=== PATIENT | female | born 1990 | race Two or more races ===

== ENCOUNTER 2019-11-23 12:47 | Outpatient (CLI) | payer OTHER, SELFPAY ==
--- NOTE | ~2019-11-23 | US_ITS ---
EXAMINATION: US breast BI limited HISTORY: Pain of the upper inner quadrant of the right and left breast TECHNIQUE: Limited bilateral breast ultrasound was performed. FINDINGS: There is no evidence of focal abnormal cystic or solid mass in the vicinity of the patient' s bilateral breast pain. IMPRESSION: No specific sonographic correlate is identified for the bilateral breast pain. Further evaluation at this time should be based on clinical assessment. Continued follow-up physical examination is recomme nded. BI-RADS Category 1: Negative Reviewed, dictated and finalized at location A. IMPRESSION: No specific sonographic correlate is identified for the bilateral breast pain. Further evaluation at this time should be based on clinical assessment. Continu ed follow-up physical examination is recommended. BI-RADS Category 1: Negative
== END 2019-11-23 12:48 | disposition home or self-care (01) ==
PROVIDERS: PCP Nurse Practitioner Adult Health; Visit Provider Nurse Practitioner Adult Health
DX: N64.4 Mastodynia (principal)
CPT/HCPCS: 76642

== ENCOUNTER 2022-04-04 20:39 | Emergency (ER) | payer OTHER, MEDICAID, SELFPAY ==
[2022-04-04 21:39] VITALS: BP 119/89; PULSE 102; RESP 20; TEMP 37.1; O2SAT 100
--- NOTE | 2022-04-04 22:57 | ED.GENADULT ---
HPI - General Adult General Chief complaint: Unspecified Stated complaint: anxiety Time Seen by Provider: 04/04/22 22:47 History of Present Illness HPI narrative: 31-year-old female presents to the emergency room for evaluation of anxiety attack. Patient states that she recently had a tooth pulled soon taking Tylenol and ibuprofen for it but states that she is having hot and cold flashes since having the procedure. Patient does not have a thermometer so was unable to take her temperature but has been using the back of her hand. Patient is stable when taking her hydroxyzine. States that she did not take it today because she did not feel that her anxiety was severe enough Review of Systems Review of Systems: CONSTITUTIONAL: Denies fever, chills, or sweats. EYES: Denies visual changes, redness, or discharge. ENT: Denies rhinorrhea, congestion, sore throat, or otalgia. CARDIOVASCULAR: Denies chest pain, palpitations, or edema. RESPIRATORY: Denies cough or dyspnea. GASTROINTESTINAL: Denies abdominal pain, nausea, vomiting, or diarrhea. GENITOURINARY: Denies dysuria or hematuria. SKIN: Denies rash or itching. MUSCULOSKELETAL: Denies back pain, joint pain, or myalgia. NEUROLOGIC: Denies headache, numbness, dizziness, or weakness. PSYCHIATRIC: Reports anxiety. Exam Narrative: GENERAL: Well-appearing, well-nourished, no physical limitations, and in no acute distress. HEAD: Normocephalic, atraumatic. EYES: Conjunctivae normal, PERRLA and EOMI. ENT: External nose normal, Nares clear, no rhinorrhea or epistaxis. Mucous membranes moist. Oropharynx without tonsillar hypertrophy exudate or other lesions. External ears normal, bilateral TMs normal bilaterally NECK: Supple. No adenopathy or masses. CHEST: Clear to auscultation. No respiratory distress. No wheezes rales or rhonchi. No tenderness. HEART: Regular rate and rhythm. No murmur heard. Normal peripheral pulses. EXTREMITIES: Normal range of motion. No edema. No clubbing or cyanosis SKIN: Warm, dry, no rash. No noted wounds NEURO: No focal deficits. Alert and oriented x3. MAEW. CN's II-XI intact bilaterally, normal gait PSYCH: Cooperative. Anxious and tearful. Course Vital Signs Vital signs: Vital Signs Temperature 37.1 C 04/04/22 21:39 Pulse Rate 102 H 04/04/22 21:39 Respiratory Rate 20 04/04/22 21:39 Blood Pressure 119/89 04/04/22 21:39 Pulse Oximetry 100 04/04/22 21:39 Oxygen Delivery Room Air 04/04/22 21:39 Temperature 37.1 C 04/04/22 21:39 Pulse Rate 102 H 04/04/22 21:39 Respiratory Rate 20 04/04/22 21:39 Blood Pressure 119/89 04/04/22 21:39 Pulse Oximetry 100 04/04/22 21:39 Oxygen Delivery Room Air 04/04/22 21:39 Medical Decision Making Vital Signs Vital Signs: Vital Signs Temperature 37.1 C 04/04/22 21:39 Pulse Rate 102 H 04/04/22 21:39 Respiratory Rate 04/04/22 21:39 Blood Pressure 119/89 04/04/22 21:39 Pulse Oximetry 100 04/04/22 21:39 Oxygen Delivery Room Air 04/04/22 21:39 Temperature 37.1 C 04/04/22 21:39 Pulse Rate 102 H 04/04/22 21:39 Respiratory Rate 04/04/22 21:39 Blood Pressure 119/89 04/04/22 21:39 Pulse Oximetry 100 04/04/22 21:39 Oxygen Delivery Room Air 04/04/22 21:39 Discharge Plan Discharge Clinical Impression: Anxiety attack Patient Disposition: Home, Self-Care Condition: Stable Instructions: Antibiotic Form, Anxiety (ED) Additional Instructions: Resume taking her hydroxyzine for her anxiety. Follow-up/Referrals: Mk,RUSSELL Tijerina [Primary Care Provider] - Time of Disposition: 22:59
--- NOTE | 2022-04-04 23:00 | PC.NURSE ---
Transferred care to CARLOS Gordillo
[2022-04-04 23:10] VITALS: BP 130/86; PULSE 103; RESP 20; O2SAT 97
== END 2022-04-04 23:10 | disposition home or self-care (01) ==
PROVIDERS: Emergency Provider Nurse Practitioner Family; PCP Nurse Practitioner Adult Health
DX: F41.9 Anxiety disorder, unspecified (principal)
CPT/HCPCS: 99281

== ENCOUNTER → 2023-02-08 13:36 | Outpatient (CLI) | payer OTHER, MEDICAID, SELFPAY ==
--- NOTE | ~2023-02-08 | MR_ITS ---
EXAMINATION: MR pituitary wo/w con DATE: 02/08/2023 14:51 INDICATION: Hyperprolactinemia. TECHNIQUE: Magnetic resonance imaging (MRI) of the brain and brainstem was performed without and with 20 mL MultiHance intravenous contrast. COMPARISON: None. FINDINGS: The pituitary is normal in size with height of 6 mm and concave superior margin. There is n o intracranial hemorrhage, acute infarction, or abnormal intracranial mass lesion. The ventricles are normal in size. The orbits are normal. The paranasal sinuses are clear. The mastoid air cells are no rmal. IMPRESSION: 1. Normal pituitary. Normal brain. Reviewed, dictated and finalized at location E.
== END ==
PROVIDERS: PCP Internal Medicine; Visit Provider Internal Medicine
DX: E22.1 Hyperprolactinemia (principal)
CPT/HCPCS: 70553; A9577